=== PATIENT | female | born 1955 | race Caucasian/White ===

== ENCOUNTER → 2021-09-11 | Outpatient (CLI) | payer OTHER ==
[2021-09-11 13:47] LABS: BASOPHILS ABSOLUTE AUTO 0.07 K/mm3 (0.00-0.23); BASOPHILS PERCENT AUTO 1 % (0-2); EOSINOPHILS ABSOLUTE AUTO 0.34 K/mm3 (0.00-0.68); EOSINOPHILS PERCENT AUTO 7 % (0-6); Hematocrit 37.8 % (33.0-51.0); Hemoglobin 12.2 g/dL (11.5-16.0); IMMATURE GRAN ABSOLUTE AUTO 0.01 K/mm3 (0.00-0.10); IMMATURE GRAN PERCENT AUTO 0 % (0-1); LYMPHOCYTES ABSOLUTE AUTO 1.25 K/mm3 (0.84-5.20); LYMPHOCYTES PERCENT AUTO 24 % (21-46); MONOCYTES ABSOLUTE AUTO 0.55 K/mm3 (0.16-1.47); MONOCYTES PERCENT AUTO 11 % (4-13); Mean Corpuscular HGB 29.7 pg (26.0-34.0); Mean Corpuscular HGB Conc 32.3 g/dL (31.5-36.5); Mean Corpuscular Volume 92 fL (80-100); Mean Platelet Volume 9.1 fL (9.1-12.4); NEUTROPHILS PERCENT AUTO 57 % (41-73); Platelet Count 396 K/mm3 (150-400); RDW Coefficient Variation 12.1 % (11.7-14.2); RDW Standard Deviation 40.8 fL (35.1-46.3); Red Blood Cell Count 4.11 M/mm3 (3.80-5.20); White Blood Cell Count 5.12 K/mm3 (4.00-11.30)
[2021-09-11 15:52] LABS: Albumin, Blood 3.8 g/dL (3.4-5.0); Anion Gap 6 mmol/L (6-16); Blood Urea Nitrogen 14 mg/dL (8-24); CO2, Blood 28 mmol/L (21-32); Calcium, Blood 9.4 mg/dL (8.5-10.1); Chloride, Blood 100 mmol/L (98-108); Glucose, Blood 100 mg/dL (70-99); Potassium, Blood 4.2 mmol/L (3.5-5.5); Sodium, Blood 134 mmol/L (136-145)
[2021-09-11 16:06] LABS: Alanine Aminotransfer (ALT/SGP 33 U/L (12-78); Albumin/Globulin Ratio 1.1 (0.8-1.8); Alk Phos 97 U/L (50-136); Aspartate Aminotrans (AST/SGOT 17 U/L (12-37); Bilirubin, Total 0.4 mg/dL (0.1-1.0); Bun/Creatinine Ratio 21.2 (12.0-20.0); Cholesterol 168 mg/dL (50-200); Creatinine, Blood 0.66 mg/dL (0.40-1.00); Globulin, Blood 3.6 g/dL (2.2-4.0); Glomerular Filtration Rate >60 (60-); HDL Cholesterol 83 mg/dL (>39); LDL/HDL RATIO 0.9; Low Density Lipoprotein Chol 74 mg/dL (0-110); Total Protein, Blood 7.4 g/dL (6.4-8.2); Triglycerides 54 mg/dL (30-160); Very Low Density Lipoprot Chol 10 mg/dL (6-32)
== END ==
LOC: LAB SHORT 13:03 → LAB 13:03
PROVIDERS: Family Medicine
DX: I10 Essential (primary) hypertension (principal); E78.5 Hyperlipidemia, unspecified
CPT/HCPCS: 36415; 80053; 80061; 85025

== ENCOUNTER 2023-04-13 14:47 | Inpatient (IN) | payer OTHER ==
[~2023-04-13] VITALS: Ht 167.6 cm; Wt 101.6 kg
[2023-04-13] MEDS ORDERED: ROSUVASTATIN CAL5 MG PO (15:03)
[2023-04-13] MEDS ORDERED: LISI20 PO (15:03)
[2023-04-13] MEDS ORDERED: MAGNESIUM CITRATE (15:03)
[2023-04-13 15:35] LABS: BASOPHILS ABSOLUTE AUTO 0.05 K/mm3 (0.00-0.23); BASOPHILS PERCENT AUTO 0 % (0-2); EOSINOPHILS ABSOLUTE AUTO 0.07 K/mm3 (0.00-0.68); EOSINOPHILS PERCENT AUTO 0 % (0-6); Hematocrit 39.5 % (33.0-51.0); IMMATURE GRAN ABSOLUTE AUTO 0.11 K/mm3 (0.00-0.10); IMMATURE GRAN PERCENT AUTO 1 % (0-1); LYMPHOCYTES ABSOLUTE AUTO 0.38 K/mm3 (0.84-5.20); LYMPHOCYTES PERCENT AUTO 2 % (21-46); MONOCYTES ABSOLUTE AUTO 1.36 K/mm3 (0.16-1.47); MONOCYTES PERCENT AUTO 7 % (4-13); Mean Corpuscular HGB 31.4 pg (26.0-34.0); Mean Corpuscular HGB Conc 35.4 g/dL (31.5-36.5); Mean Corpuscular Volume 89 fL (80-100); Mean Platelet Volume 10.7 fL (9.1-12.4); NEUTROPHILS ABSOLUTE AUTO 18.01 K/mm3 (1.96-9.15); NEUTROPHILS PERCENT AUTO 90 % (41-73); Platelet Count 299 K/mm3 (150-400); RDW Coefficient Variation 12.3 % (11.7-14.2); RDW Standard Deviation 40.1 fL (35.1-46.3); Red Blood Cell Count 4.46 M/mm3 (3.80-5.20); White Blood Cell Count 19.98 K/mm3 (4.00-11.30)
[2023-04-13 15:53] LABS: Albumin, Blood 2.8 g/dL (3.4-5.0); Albumin/Globulin Ratio 0.5 (0.8-1.8); Bilirubin, Total 0.8 mg/dL (0.1-1.0); Bun/Creatinine Ratio 28.1 (12.0-20.0); Calcium, Blood 9.3 mg/dL (8.5-10.1); Creatinine, Blood 1.71 mg/dL (0.40-1.00); Globulin, Blood 5.1 g/dL (2.2-4.0); Total Protein, Blood 7.9 g/dL (6.4-8.2)
[2023-04-13 15:54] LABS: Potassium, Blood 4.8 mmol/L (3.5-5.5)
[2023-04-13 21:07] LABS: Source, Urine Clean Catch
[2023-04-13 21:13] LABS: Bilirubin, Urine Neg (Neg); Blood, Urine 3+ (Neg); Glucose Qualitative, Urine Neg (Neg); Ketones, Urine Neg (Neg); Leukocyte Esterase, Urine 2+ (Neg); Nitrite, Urine Neg (Neg); Protein, Urine 3+ (Neg); Urobilinogen, Urine NORM (Normal)
[2023-04-13 21:25] LABS: Appearance, Urine Hazy (Clear); Color, Urine Yellow (P-Yellow)
[2023-04-13 21:26] LABS: Bacteria Many /hpf; Red Blood Cells, Urine 0-2 /hpf (0-2); Squamous Epithelial Cells Few /hpf (Few)
[2023-04-13 23:44] LABS: Adenovirus F 40/41 Not Detected (NOT DETECT); Astrovirus Not Detected (NOT DETECT); Campylobacter Sp Not Detected (NOT DETECT); Cryptosporidium Not Detected (NOT DETECT); Cyclospora Cayetanensis Not Detected (NOT DETECT); E. Coli O157 Not Detected (NOT DETECT); Entamoeba Histolytica Not Detected (NOT DETECT); Enteroaggregative E. coli-EAEC Not Detected (NOT DETECT); Enteropathogenic E. coli-EPEC Not Detected (NOT DETECT); Enterotoxigenic E. coli-ETEC Not Detected (NOT DETECT); Giardia Lamblia Not Detected (NOT DETECT); Norovirus GI/GII Not Detected (NOT DETECT); Plesiomonas Shigelloides Not Detected (NOT DETECT); Rotavirus A Not Detected (NOT DETECT); Salmonella Sp Not Detected (NOT DETECT); Sapovirus Not Detected (NOT DETECT); Shiga Toxin-prod E. coli-STEC Not Detected (NOT DETECT); Shigella/Enteroin E. coli-EIEC Not Detected (NOT DETECT); Vibrio Cholerae Not Detected (NOT DETECT); Vibrio Sp Not Detected (NOT DETECT); Yersinia Enterocolitica Not Detected (NOT DETECT)
[2023-04-14 00:07] VITALS: BP 139/63
[2023-04-14 02:51] LABS: SARS-Cov-2 (COVID-19) PCR, MMC NEGATIVE (NEGATIVE)
[2023-04-14 04:00] VITALS: BP 115/59
[2023-04-14 04:23] LABS: Hematocrit 35.4 % (33.0-51.0); Hemoglobin 12.5 g/dL (11.5-16.0); Mean Corpuscular HGB 31.3 pg (26.0-34.0); Mean Corpuscular HGB Conc 35.3 g/dL (31.5-36.5); Mean Corpuscular Volume 89 fL (80-100); Mean Platelet Volume 9.9 fL (9.1-12.4); Platelet Count 266 K/mm3 (150-400); RDW Coefficient Variation 12.3 % (11.7-14.2); RDW Standard Deviation 40.3 fL (35.1-46.3); Red Blood Cell Count 3.99 M/mm3 (3.80-5.20); White Blood Cell Count 15.09 K/mm3 (4.00-11.30)
[2023-04-14 04:51] LABS: Albumin, Blood 2.3 g/dL (3.4-5.0); Albumin/Globulin Ratio 0.6 (0.8-1.8); Bilirubin, Total 0.4 mg/dL (0.1-1.0); Bun/Creatinine Ratio 43.1 (12.0-20.0); Calcium, Blood 8.5 mg/dL (8.5-10.1); Creatinine, Blood 1.09 mg/dL (0.40-1.00); Globulin, Blood 4.1 g/dL (2.2-4.0); Magnesium, Blood 2.1 mg/dL (1.6-2.4); Potassium, Blood 3.5 mmol/L (3.5-5.5); Total Protein, Blood 6.4 g/dL (6.4-8.2)
[2023-04-14 04:52] LABS: BAND PERCENT MAN 16 % (0-8); BASOPHILS PERCENT MAN 0 % (0-2); EOSINOPHILS PERCENT MAN 0 % (0-6); LYMPHOCYTES PERCENT MAN 4 % (21-46); MONOCYTES ABSOLUTE MAN 0.75 K/mm3 (0.16-1.47); MONOCYTES PERCENT MAN 5 % (4-13); NEUTROPHILS ABSOLUTE MAN 13.73 K/mm3 (1.96-9.15); SEG NEUTROPHILS PERCENT MAN 75 % (41-73); TOTAL CELLS COUNTED 100
--- NOTE | 2023-04-14 06:07 | NUR ---
SHIFT SHELDON PT ARRIVED FROM ER TO PCU ROOM 11 EARLIER IN THE SHIFT. SHE HAS BEEN ALERT AND ORIENTED X3, W/SOME CONFUSION AT TIMES. HER RIGHT LOWER EXTREMITY IS NOTED TO BE RED AND BLISTERING. PERIMETERS MARKED PER MD ORDER. PEDAL PULSES ARE PRESENT BILATERALLY. SHE HAS SKIN TEARS ON BOTH ARMS. SHE IS INCONTINENT OF BOWEL AND BLADDER, ATTENDS IN PLACE. SHE HAS DENIED ANY PAIN AND HAS HAD NO ACUTE EVENTS SINCE HER ADMISSION TO THIS UNIT.
[2023-04-14 07:07] VITALS: BP 109/61
--- NOTE | 2023-04-14 07:41 | NUR ---
NURSING PCU DAYSHIFT: Assumed care of pt at approx 0700. A/O, very pleasant, cooperative w/care. C/O mild pain to R heel r/t blistering/cellulitis. RLE red/warm, weeping, blisters, redness extending from foot to just below knee, area marked. Redness/excoriation in folds, scattered bruising, skin tears to UE's, skin fragile. Tele in place, NSR, no c/o CP/pressure, SBP 109 at initial assessment, non pitting edema to RLE. L/S cta t/o, denies dyspnea, no noted cough, O2 sat upper 90's on RA. Abd SNT, BT+, voids w/o difficulty per pt though attends in place. PIV x1, NS infusing at 100cc/hr as per d/o w/abx as scheduled. No s/s of acute distress this a.m. PMD currently at bedside for assessment. Bedbath and orthostatics being completed at this time. Bed/safety alarms in use for fall prevention. Pt denies any current needs/questions regarding plan of care, call light in reach, cont to monitor for changes.
[2023-04-14 12:41] VITALS: BP 153/73
[2023-04-14 15:47] VITALS: BP 152/82
--- NOTE | 2023-04-14 18:16 | NUR ---
NURSING PCU DAYSHIFT SUMMARY: Pt has continued to do well t/o the shift. Spent majority of day OOB in chair. Worked w/PT/OT as ordered. Current recommendation to DC to SNF though patient has concerns, education provided regarding SNF/rehab options and purpose of SNF. Family at bedside intermittently t/o day, update provided to son via telephone, plan of care discussed and questions answered. RLE continues to drain clear fluid, swelling and redness has shown some improvement. IVF continue at 100cc/hr w/abx as scheduled. Seen by PMD, new d/o received. Pt xfer BTB w/staff assist. Resting comfortably w/call light in reach. Denies any current questions/needs, cont to monitor until rpt is given to NOC RN.
[2023-04-15 00:34] VITALS: BP 157/78
[2023-04-15 04:00] VITALS: BP 144/61
[2023-04-15 04:07] LABS: BASOPHILS ABSOLUTE AUTO 0.02 K/mm3 (0.00-0.23); BASOPHILS PERCENT AUTO 0 % (0-2); EOSINOPHILS ABSOLUTE AUTO 0.04 K/mm3 (0.00-0.68); EOSINOPHILS PERCENT AUTO 0 % (0-6); Hematocrit 31.9 % (33.0-51.0); Hemoglobin 11.1 g/dL (11.5-16.0); IMMATURE GRAN ABSOLUTE AUTO 0.09 K/mm3 (0.00-0.10); IMMATURE GRAN PERCENT AUTO 1 % (0-1); LYMPHOCYTES ABSOLUTE AUTO 0.28 K/mm3 (0.84-5.20); LYMPHOCYTES PERCENT AUTO 3 % (21-46); MONOCYTES ABSOLUTE AUTO 0.91 K/mm3 (0.16-1.47); MONOCYTES PERCENT AUTO 8 % (4-13); Mean Corpuscular HGB 31.2 pg (26.0-34.0); Mean Corpuscular HGB Conc 34.8 g/dL (31.5-36.5); Mean Corpuscular Volume 90 fL (80-100); NEUTROPHILS ABSOLUTE AUTO 9.89 K/mm3 (1.96-9.15); NEUTROPHILS PERCENT AUTO 88 % (41-73); Platelet Count 254 K/mm3 (150-400); RDW Coefficient Variation 12.4 % (11.7-14.2); RDW Standard Deviation 41.1 fL (35.1-46.3); Red Blood Cell Count 3.56 M/mm3 (3.80-5.20); White Blood Cell Count 11.23 K/mm3 (4.00-11.30)
--- NOTE | 2023-04-15 05:28 | NUR ---
SHIFT SUMMARY NO ACUTE EVENTS T/O NIGHT. PT A/O X 4. FOLLOWS COMMANDS. VSS. ON RA. 1-2 PERSON ASSIST TO GET OOB. USES CALL LIGHT. HAS URGE INCONT. RLE RED, HOT, AND DRAINING. ONE SPOT OPEN ON INSIDE OF ANKLE. MEDICATED FOR PAIN ONCE. SEE EMAR. NS AT 100ML/HR. WILL REPORT OFF TO ONCOMING RN.
[2023-04-15 05:54] LABS: Albumin, Blood 2.3 g/dL (3.4-5.0); Anion Gap 5 mmol/L (6-16); Blood Urea Nitrogen 21 mg/dL (8-24); Bun/Creatinine Ratio 31.3 (12.0-20.0); CO2, Blood 23 mmol/L (21-32); Calcium, Blood 8.4 mg/dL (8.5-10.1); Chloride, Blood 106 mmol/L (98-108); Creatinine, Blood 0.67 mg/dL (0.40-1.00); Glomerular Filtration Rate 96 (60-); Glucose, Blood 107 mg/dL (70-99); Phosphorus, Blood 2.1 mg/dL (2.5-4.9); Potassium, Blood 3.3 mmol/L (3.5-5.5); Sodium, Blood 134 mmol/L (136-145)
[2023-04-15 07:30] VITALS: BP 147/73
[2023-04-15 15:59] VITALS: BP 145/67
--- NOTE | 2023-04-15 17:15 | NUR ---
NURSING PCU DAYSHIFT SUMMARY: No significant changes noted t/o the shift. Worked with PT/OT and was OOB in chair until early afternoon. RLE has had less drainage than previous day and appears more edematous. C/O cramping in LE's, requested tylenol, pain improved per pt. CTA of RLE completed, results reviewed. Plan for possible discharge 04/16 to SNF which pt and sister are agreeable to at this time. Pt denies any current questions/needs, resting comfortably in bed. Cont to monitor until rpt is give to NOC RN.
[2023-04-15 21:47] VITALS: BP 148/67
--- NOTE | 2023-04-15 21:58 | NUR ---
CARE WAS ASSUMED OF PT AT 1900, PT WAS ALERT AND ORIENTED, ON ROOM AIR WITHOUT DISTRESS. NO MAJOR CHANGES DURING SHIFT. REPORT TO KOFI KELLOGG WHO WILL ASSUME CARE IN ROOM 301 ON MEDICAL FLOOR.
[2023-04-15 22:15] VITALS: BP 138/67
[2023-04-16 04:19] VITALS: BP 149/59
--- NOTE | 2023-04-16 05:27 | NUR ---
SHIFT SUMMARY REPORT FROM PCU NURSE ROSY RN- 2199 PT TRANSFERRED TO ROOM 301- 2ND NURSE SKIN CHECK DONE BY SWETA Santos RN- PT DENIES PAIN IN RIGHT LEFT, RIGHT LEG= CELLULITIS - SKIN MARKING IN PLACE, PT ORIENT TO ROOM, CALL LIGHT, REPORT THAT PT IS CONFUSED AT TIMES, BED ALARM IN PLACE- PT USED CALL LIGHT COUPLE TIMES IN SHIFT TO USE BSC, PT TOLERATED WELL
[2023-04-16 07:05] VITALS: BP 170/65
--- NOTE | 2023-04-16 16:09 | NUR ---
SHIFT SUMMARY PT IS ALERT AND ORIENTED X4. SHE HAS BEEN UP TO THE CHAIR FOR MOST OF THE DAY. REDNESS ON RLE SEEMS TO BE WORSE THAT THE BEGINING OF THE SHIFT. LIGHT COMPRESSION APPLIED PER DR. MOHAN REQUEST. 1 PERSON ASSIST. PAIN HAS BEEN MANAGED PER EMAR AND ICE PACKS. NO ACUTE CHANGES THIS SHIFT. BED IS IN THE LOWEST POSITION WITH CALL LIGHT IN REACH. PT IS ABLE TO MAKE NEEDS KNOWN.
[2023-04-16 19:27] VITALS: BP 162/84
[2023-04-17 03:25] VITALS: BP 148/63
[2023-04-17 05:03] LABS: BASOPHILS ABSOLUTE AUTO 0.03 K/mm3 (0.00-0.23); BASOPHILS PERCENT AUTO 0 % (0-2); EOSINOPHILS ABSOLUTE AUTO 0.07 K/mm3 (0.00-0.68); EOSINOPHILS PERCENT AUTO 1 % (0-6); Hematocrit 29.7 % (33.0-51.0); Hemoglobin 10.3 g/dL (11.5-16.0); IMMATURE GRAN ABSOLUTE AUTO 0.27 K/mm3 (0.00-0.10); IMMATURE GRAN PERCENT AUTO 2 % (0-1); LYMPHOCYTES ABSOLUTE AUTO 0.58 K/mm3 (0.84-5.20); LYMPHOCYTES PERCENT AUTO 5 % (21-46); MONOCYTES ABSOLUTE AUTO 1.18 K/mm3 (0.16-1.47); MONOCYTES PERCENT AUTO 10 % (4-13); Mean Corpuscular HGB 30.9 pg (26.0-34.0); Mean Corpuscular HGB Conc 34.7 g/dL (31.5-36.5); Mean Corpuscular Volume 89 fL (80-100); Mean Platelet Volume 10.3 fL (9.1-12.4); NEUTROPHILS ABSOLUTE AUTO 10.27 K/mm3 (1.96-9.15); NEUTROPHILS PERCENT AUTO 83 % (41-73); Platelet Count 333 K/mm3 (150-400); RDW Coefficient Variation 12.9 % (11.7-14.2); Red Blood Cell Count 3.33 M/mm3 (3.80-5.20)
--- NOTE | 2023-04-17 05:09 | NUR ---
SHIFT SUMMARY PT SITTING UP IN CHAIR DURING BEDSIDE ROUNDS, CALL LIGHT WITHIN REACH - PT TOOK HS MEDS WITHOUT PROBLEMS- CALL TO ANIBAL ERNANDEZ REQUESTING PROBIOTICS - GAVE PROBIOTIC NOW SCHEDULED BID TO START TOMORROW- PT AMBULATED TO BR WITH FWW - CREAM APPLIED TO BUTTOCKS- APPLIED NYSTATIN POWDER TO FOLDS- PT TOLERATED WELL- PT SLEPT T/O NIGHT, PT USED CALL LIGHT APPROPRIATELY TO GET UP TO BSC, PT RIGHT LEG CELLULITS HAS INCREASED WATER BLISTERS AROUND ANKLE AND UPPER SIDE OF CALF, LEG IS WEPPING- ELEVATED PT'S LEGS WITH MULTIPLE PILLOWS TO DECREASE THE SWELLING, PT TOLERATED WELL BED LOW POSITION, CALL LIGHT WITHIN REACH
[2023-04-17 05:38] LABS: Magnesium, Blood 1.7 mg/dL (1.6-2.4)
[2023-04-17 05:45] LABS: Anion Gap 7 mmol/L (6-16); Blood Urea Nitrogen 6 mg/dL (8-24); Bun/Creatinine Ratio 11.2 (12.0-20.0); CO2, Blood 25 mmol/L (21-32); Calcium, Blood 8.1 mg/dL (8.5-10.1); Chloride, Blood 102 mmol/L (98-108); Creatinine, Blood 0.54 mg/dL (0.40-1.00); Glomerular Filtration Rate 101 (60-); Glucose, Blood 122 mg/dL (70-99); Phosphorus, Blood 2.7 mg/dL (2.5-4.9); Potassium, Blood 3.2 mmol/L (3.5-5.5); Sodium, Blood 134 mmol/L (136-145)
[2023-04-17 07:37] VITALS: BP 143/58
[2023-04-17 15:36] VITALS: BP 138/59
--- NOTE | 2023-04-17 17:20 | NUR ---
SHIFT SUMMARY PT IS ALERT AND ORIENTED X4. RLE REDNESS APPEARS TO BE WORSE THAN YESTERDAY. NEW BLISTERS HAVE FORMED AND WEEPING. PAIN TREATED PER EMAR. PT IS 1-2 PERSON WITH FWW AND GAIT BELT. BED IS IN THE LOWEST POSITION WITH CALL LIGHT IN REACH. ABLE TO MAKE NEEDS KNOWN.
[2023-04-17 21:02] VITALS: BP 137/49
[2023-04-18 04:25] VITALS: BP 149/77
[2023-04-18 04:49] LABS: Hemoglobin 10.3 g/dL (11.5-16.0); Mean Corpuscular HGB 31.1 pg (26.0-34.0); Mean Corpuscular HGB Conc 34.3 g/dL (31.5-36.5); Mean Corpuscular Volume 91 fL (80-100); Platelet Count 433 K/mm3 (150-400); RDW Coefficient Variation 13.2 % (11.7-14.2); RDW Standard Deviation 44.1 fL (35.1-46.3); Red Blood Cell Count 3.31 M/mm3 (3.80-5.20)
[2023-04-18 05:09] LABS: Anion Gap 6 mmol/L (6-16); Blood Urea Nitrogen 7 mg/dL (8-24); Bun/Creatinine Ratio 12.3 (12.0-20.0); CO2, Blood 24 mmol/L (21-32); Calcium, Blood 8.2 mg/dL (8.5-10.1); Chloride, Blood 104 mmol/L (98-108); Creatinine, Blood 0.57 mg/dL (0.40-1.00); Glomerular Filtration Rate 100 (60-); Glucose, Blood 131 mg/dL (70-99); Magnesium, Blood 1.9 mg/dL (1.6-2.4); Phosphorus, Blood 2.8 mg/dL (2.5-4.9); Potassium, Blood 3.8 mmol/L (3.5-5.5); Sodium, Blood 134 mmol/L (136-145)
[2023-04-18 05:21] LABS: BASOPHILS ABSOLUTE MAN 0.11 K/mm3 (0.00-0.23); BASOPHILS PERCENT MAN 1 % (0-2); EOSINOPHILS PERCENT MAN 0 % (0-6); LYMPHOCYTES ABSOLUTE MAN 0.46 K/mm3 (0.84-5.20); LYMPHOCYTES PERCENT MAN 4 % (21-46); METAMYELOCYTE ABSOLUTE MAN 0.46 K/mm3 (0.00-0.00); METAMYELOCYTE PERCENT MAN 4 % (0-0); MONOCYTES PERCENT MAN 7 % (4-13); MYELOCYTE ABSOLUTE MAN 0.34 K/mm3 (0.00-0.00); MYELOCYTE PERCENT MAN 3 % (0-0); NEUTROPHILS ABSOLUTE MAN 9.31 K/mm3 (1.96-9.15); SEG NEUTROPHILS PERCENT MAN 81 % (41-73); TOTAL CELLS COUNTED 100
--- NOTE | 2023-04-18 06:28 | NUR ---
SHIFT SUMMARY PT SITTING UP IN RECLINER DURING BEDSIDE REPORT, RIGHT CELLULITIS LEG ELEVATED WITH 2 PILLOWS, INCREASED REDNESS AND ADDITONAL BLISTERS COMPARED TO 04/16 HS ASSESSMENT, ZOSYN OVERDUE FROM 1800- FIRST DOSE GIVEN LATE- WILL ADJUST TIMES AND GET ON SCHEDULE- PT REQUESTED TRAMADOL WITH HS MEDS AND REQUESTED TO STAY UP IN RECLINER FOR LONGER, 2350 PT AMBULATED TO BATHROOM AND RETURNED TO BED- PT TOLERATED WELL-
[2023-04-18 07:21] VITALS: BP 138/60
--- NOTE | 2023-04-18 16:41 | NUR ---
SHIFT SUMMARY MS MCGUIRE IS OX4. RLE ELEVATED WHEN IN BED AND RECLINER. WALKED IN THE HALLS TWICE WITH GAIT BELT AND WALKER. RLE RED WITH WEEPING BLISTERS, WRAPPED WITH DRY DRESSING X 2 (SOAKED THROUGH). REDNESS HAS NOT EXTENDED ABOVE MARKED PEN LINE. POWERGLIDE PLACED TODAY. MS MCGUIRE HAS SOME DISCOMFORT TO HER RLE, HELPED WITH REST/ELEVATION. GOOD FAMILY SUPPORT FROM SISTERS. BED LOW, CALL LIGHT IN REACH.
[2023-04-18 17:00] VITALS: BP 144/66
--- NOTE | 2023-04-19 00:43 | NUR ---
PT IS A&OX4 1PASSIST FWW WGB. USE BSC. KVO IV @20ML/HR MARIANA. PT HAS SCATTERED BRUISING TO EXTREMITIES. RLE CELLUITSIS RED EDEMANEOUS WEEPING OOZING YELLOW FLUID WITH BLISTERS. REPORTS PAIN 3/10. LUNGS ARE DIMINISHED AT BASES SOB W EXCERSION. CYNTHIA RASH AREA IN ABDOMENAL FOLD. MULTISTAGE BREAKDOWN IN GLUTEAL FOLD W BRUISING BARRIER CREAM APPLIED. PT DENIES FURTHER DISCOMFORT. CALL BOYD WITHIN REACH BED LOWERED. WILL CONITNUE TO MONITOR.
[2023-04-19 03:03] LABS: Hematocrit 31.2 % (33.0-51.0); Hemoglobin 10.7 g/dL (11.5-16.0); Mean Corpuscular HGB 31.4 pg (26.0-34.0); Mean Corpuscular HGB Conc 34.3 g/dL (31.5-36.5); Mean Corpuscular Volume 92 fL (80-100); Mean Platelet Volume 9.3 fL (9.1-12.4); Platelet Count 521 K/mm3 (150-400); RDW Coefficient Variation 13.6 % (11.7-14.2); Red Blood Cell Count 3.41 M/mm3 (3.80-5.20); White Blood Cell Count 9.53 K/mm3 (4.00-11.30)
[2023-04-19 03:20] LABS: Anion Gap 7 mmol/L (6-16); Blood Urea Nitrogen 9 mg/dL (8-24); Bun/Creatinine Ratio 15.1 (12.0-20.0); CO2, Blood 24 mmol/L (21-32); Calcium, Blood 8.6 mg/dL (8.5-10.1); Chloride, Blood 107 mmol/L (98-108); Glomerular Filtration Rate 99 (60-); Glucose, Blood 143 mg/dL (70-99); Phosphorus, Blood 3.1 mg/dL (2.5-4.9); Potassium, Blood 4.2 mmol/L (3.5-5.5); Sodium, Blood 138 mmol/L (136-145)
[2023-04-19 03:24] LABS: Vancomycin, Trough 18.4 ug/mL (5.0-10.0)
[2023-04-19 04:05] VITALS: BP 177/68
--- NOTE | 2023-04-19 05:32 | NUR ---
SHIFT SUMMARY PATIENT MEDICATED FOR PAIN X1. PATIENT DENIES NAUSEA AND SHORTNESS OF BREATH. PATIENT IS A SBA WITH A FWW TO THE BSC. PATIENT SLEPT ON AND OFF THROUGHOUT THE NIGHT. DRESSING TO RLE CHANGED. RLE WEEPING FREQUENTLY. PATIENT IS A&O X4, PATIENT IS PLEASANT AND COOPERATIVE WITH CARE.
[2023-04-19 06:06] LABS: BAND PERCENT MAN 4 % (0-8); BASOPHILS ABSOLUTE MAN 0.09 K/mm3 (0.00-0.23); BASOPHILS PERCENT MAN 1 % (0-2); EOSINOPHILS ABSOLUTE MAN 0.09 K/mm3 (0.00-0.68); EOSINOPHILS PERCENT MAN 1 % (0-6); LYMPHOCYTES ABSOLUTE MAN 0.57 K/mm3 (0.84-5.20); LYMPHOCYTES PERCENT MAN 6 % (21-46); METAMYELOCYTE ABSOLUTE MAN 0.09 K/mm3 (0.00-0.00); METAMYELOCYTE PERCENT MAN 1 % (0-0); MONOCYTES ABSOLUTE MAN 0.76 K/mm3 (0.16-1.47); MONOCYTES PERCENT MAN 8 % (4-13); MYELOCYTE ABSOLUTE MAN 1.14 K/mm3 (0.00-0.00); MYELOCYTE PERCENT MAN 12 % (0-0); NEUTROPHILS ABSOLUTE MAN 6.76 K/mm3 (1.96-9.15); SEG NEUTROPHILS PERCENT MAN 67 % (41-73); TOTAL CELLS COUNTED 100
[2023-04-19 07:35] VITALS: BP 183/73
[2023-04-19 12:34] VITALS: BP 151/67
[2023-04-19 15:22] VITALS: BP 172/66
--- NOTE | 2023-04-19 18:26 | NUR ---
SHIFT SUMMARY MS MCGUIRE IS OX4, UP TO CHAIR TODAY WITH LEG ELEVATED, BACK IN BED NOW WITH LEG ELEVATED ON PILLOWS. RLE DISCOMFORT AFTER BLISTERS TRIMMED AND REDRESSED BY DR MOHAN TODAY. NO BLEEDING NOTICED THROUGH DRESSING, DRESSING DUE TO BE CHANGED SHORTLY. IV ABX VIA POWERGLIDE, ABLE TO GET BLOOD RETURN BUT NOT ENOUGH FOR BLOOD DRAW. BED LOW, CALL LIGHT IN REACH.
[2023-04-19 18:39] LABS: Anion Gap 6 mmol/L (6-16); Blood Urea Nitrogen 8 mg/dL (8-24); Bun/Creatinine Ratio 13.7 (12.0-20.0); CO2, Blood 25 mmol/L (21-32); Calcium, Blood 8.4 mg/dL (8.5-10.1); Chloride, Blood 104 mmol/L (98-108); Creatinine, Blood 0.58 mg/dL (0.40-1.00); Glomerular Filtration Rate 100 (60-); Glucose, Blood 131 mg/dL (70-99); Potassium, Blood 4.3 mmol/L (3.5-5.5); Sodium, Blood 135 mmol/L (136-145)
[2023-04-19 19:15] VITALS: BP 140/70
--- NOTE | 2023-04-19 19:51 | NUR ---
RN NOTE DRESSING CHANGE DONE RIGHT LEG. PREVIOUS DRESSING WAS MOIST, SLIGHT BLOODY DRAINAGE FROM HEMATOMA SITE BUT NOT MUCH. PHOTOGRAPHS PLACED IN THE CHART. PT TOLERATED DRESSING CHANGE WELL.
--- NOTE | 2023-04-20 02:00 | NUR ---
PT A&0X4 RLE ELEVATED 1PASSIST TO BSC APPLIED BARRIER CREAM. PT REPORTS MODERATE PAIN EARLIER AND RECEIVED PRN PER EMAR. PT REPORTS MILD DISCOMFORT TO RLE DRESSING C/D/I. PT LUNGS ARE DIMINISHED IN BASES AND PT IS SOB WILL EXCERSION. PT PLNS TO D/C HOME WITH FAMILY SUPPORT AND OUTPT ORAL ABX OR IV CLINIC. BED LOWERED CALL BEEL WITHIN REACH WILL CONTINUE TO MONITOR.
[2023-04-20 02:20] LABS: Hematocrit 31.5 % (33.0-51.0); Hemoglobin 10.5 g/dL (11.5-16.0); Mean Corpuscular HGB 30.8 pg (26.0-34.0); Mean Corpuscular HGB Conc 33.3 g/dL (31.5-36.5); Mean Corpuscular Volume 92 fL (80-100); Mean Platelet Volume 9.1 fL (9.1-12.4); Platelet Count 558 K/mm3 (150-400); RDW Coefficient Variation 13.6 % (11.7-14.2); RDW Standard Deviation 46.4 fL (35.1-46.3); Red Blood Cell Count 3.41 M/mm3 (3.80-5.20); White Blood Cell Count 8.72 K/mm3 (4.00-11.30)
[2023-04-20 03:05] LABS: Vancomycin, Trough 20.3 ug/mL (5.0-10.0)
[2023-04-20 04:05] VITALS: BP 174/66
[2023-04-20 04:36] LABS: BAND PERCENT MAN 5 % (0-8); BASOPHILS PERCENT MAN 0 % (0-2); EOSINOPHILS ABSOLUTE MAN 0.08 K/mm3 (0.00-0.68); EOSINOPHILS PERCENT MAN 1 % (0-6); LYMPHOCYTES ABSOLUTE MAN 1.22 K/mm3 (0.84-5.20); LYMPHOCYTES PERCENT MAN 14 % (21-46); METAMYELOCYTE ABSOLUTE MAN 0.26 K/mm3 (0.00-0.00); METAMYELOCYTE PERCENT MAN 3 % (0-0); MONOCYTES ABSOLUTE MAN 0.78 K/mm3 (0.16-1.47); MONOCYTES PERCENT MAN 9 % (4-13); MYELOCYTE ABSOLUTE MAN 0.17 K/mm3 (0.00-0.00); MYELOCYTE PERCENT MAN 2 % (0-0); NEUTROPHILS ABSOLUTE MAN 6.19 K/mm3 (1.96-9.15); SEG NEUTROPHILS PERCENT MAN 66 % (41-73); TOTAL CELLS COUNTED 100
--- NOTE | 2023-04-20 05:21 | NUR ---
SHIFT SUMMARY PATIENT MEDICATED FOR PAIN X2, PATIENT DENIES NAUSEA AND SHORTNESS OF BREATH. PATIENT IS A SBA WITH A FWW TO THE BS. PATIENT SLEPT MOST OF NIGHT. PATIENT VANCO LEVEL CAME BACK AT 20.3. 0300 DOSE NOT GIVEN PER PHARMACY. DRESSING TO RIGHT LE C/D/I. PATIENT IS A&O X4. PATIENT HAS POWERGLIDE TO MARIANA. PATIENT IS PLEASANT AND COOPERATIVE WITH CARE. PATIENT CALLS APPROPRIATELY.
[2023-04-20 07:31] VITALS: BP 185/73
[2023-04-20 08:52] VITALS: BP 166/65
[2023-04-20 15:04] VITALS: BP 189/86
[2023-04-20 16:14] VITALS: BP 169/80
--- NOTE | 2023-04-20 16:29 | NUR ---
SHIFT SUMMARY MS MCGUIRE SAID THAT SHE IS TIRED TODAY. SHE DECLINED WALKING IN THE HALLWAYS, SAID THAT SHE FELT LIKE HER KNEE WOULD BUCKLE UNDER HER. SHE STOOD AND TRANSFERED WITH WALKER/GAIT BELT AND 1 PERSON ASSISTANCE. SHE SHOWERED TODAY. LEG REDRESSED AFTER HER SHOWER WITH CALCIUM ALGINATE, SILICONE GEL, ABD PADS AND KERLEX. HTN, GIVEN IV HYDRALAZINE, SBP 160S POST IV HYDRALAZINE. SUPPORTIVE FAMILY (SISTERS) VISITED TODAY. IN BED NOW RESTING WITH LEG ELEVATED ON PILLOWS. PAIN CONTROLLED WITH PO MEDICATIONS. BED LOW, CALL LIGHT IN REACH.
[2023-04-20 18:57] VITALS: BP 168/90
--- NOTE | 2023-04-21 02:23 | NUR ---
SHIFT SUMMERY. PT WAS SITTING IN RECLINER ATN START OF SHIFT, THEN MOVED TO BED TO SLEEP. PT GIVEN TYLENOL FOR LEG PAIN AND HAS SEEMED TO BE SLEEPING WELL DURING THE NIGHT. CALL LIGHT IN REACH.
[2023-04-21 03:02] VITALS: BP 186/88
[2023-04-21 04:52] LABS: Hematocrit 33.7 % (33.0-51.0); Hemoglobin 11.1 g/dL (11.5-16.0); Mean Corpuscular HGB 30.6 pg (26.0-34.0); Mean Corpuscular HGB Conc 32.9 g/dL (31.5-36.5); Mean Corpuscular Volume 93 fL (80-100); Mean Platelet Volume 9.3 fL (9.1-12.4); Platelet Count 601 K/mm3 (150-400); RDW Coefficient Variation 13.4 % (11.7-14.2); RDW Standard Deviation 46.5 fL (35.1-46.3); Red Blood Cell Count 3.63 M/mm3 (3.80-5.20); White Blood Cell Count 9.27 K/mm3 (4.00-11.30)
[2023-04-21 05:28] LABS: Albumin, Blood 2.2 g/dL (3.4-5.0); Anion Gap 3 mmol/L (6-16); Blood Urea Nitrogen 7 mg/dL (8-24); Bun/Creatinine Ratio 10.4 (12.0-20.0); CO2, Blood 28 mmol/L (21-32); Calcium, Blood 8.9 mg/dL (8.5-10.1); Chloride, Blood 103 mmol/L (98-108); Creatinine, Blood 0.67 mg/dL (0.40-1.00); Glomerular Filtration Rate 96 (60-); Glucose, Blood 122 mg/dL (70-99); Phosphorus, Blood 4.1 mg/dL (2.5-4.9); Potassium, Blood 4.2 mmol/L (3.5-5.5); Sodium, Blood 134 mmol/L (136-145)
[2023-04-21 05:52] LABS: BAND PERCENT MAN 1 % (0-8); BASOPHILS PERCENT MAN 0 % (0-2); EOSINOPHILS ABSOLUTE MAN 0.18 K/mm3 (0.00-0.68); EOSINOPHILS PERCENT MAN 2 % (0-6); LYMPHOCYTES ABSOLUTE MAN 0.55 K/mm3 (0.84-5.20); LYMPHOCYTES PERCENT MAN 6 % (21-46); METAMYELOCYTE ABSOLUTE MAN 0.55 K/mm3 (0.00-0.00); METAMYELOCYTE PERCENT MAN 6 % (0-0); MONOCYTES ABSOLUTE MAN 0.64 K/mm3 (0.16-1.47); MONOCYTES PERCENT MAN 7 % (4-13); MYELOCYTE ABSOLUTE MAN 0.09 K/mm3 (0.00-0.00); MYELOCYTE PERCENT MAN 1 % (0-0); NEUTROPHILS ABSOLUTE MAN 7.23 K/mm3 (1.96-9.15); SEG NEUTROPHILS PERCENT MAN 77 % (41-73); TOTAL CELLS COUNTED 100
[2023-04-21 07:41] VITALS: BP 184/85
--- NOTE | 2023-04-21 11:12 | NUR ---
pt sitting up in a chair a/ox4, pleasant and coopertive with care, follows commands well, denies pain, states she's doing ok, lungs are clear t/o, resp even and unlabored, no cough noted, hrr, wounds to right leg with dressing intact, ecchymotic areas to arms, power glide to estefani infusing ns at this time, btx4, abd round soft nontender, voids via bsc, maew, ambulates with a walker, asa, call light in reach.
[2023-04-21 16:53] VITALS: BP 175/78
--- NOTE | 2023-04-21 18:03 | NUR ---
Pt has been up to a chair, about half of the day, wound care nurse changed the dressing on her leg, and put orders in, medicated once for pain, states she's doing ok now. no further changes this shift. call light in reach.
[2023-04-21 19:51] VITALS: BP 191/76
[2023-04-22 03:24] VITALS: BP 183/77
--- NOTE | 2023-04-22 04:20 | NUR ---
SHIFT SUMMARY SLOANE IS ALERT AND FULLY ORIENTED AT START OF SHIFT. SHE IS COOPERATIVE OF CARE AND PLEASANT. HER RIGHT LEG DRESSING WAS INTACT AND DRY. SHE COMPLAINS OF MODERATE PAIN IN THE LEG, MEDICATED PER EMAR. NO ACUTE EVENTS THIS SHIFT, PT SLEPT T/O THE SHIFT. PT CURRENTLY RESTING IN BED WITH CALL LIGHT IN REACH.
[2023-04-22 08:18] VITALS: BP 169/73
[2023-04-22 08:21] LABS: Hematocrit 34.2 % (33.0-51.0); Hemoglobin 11.3 g/dL (11.5-16.0); Mean Corpuscular HGB 30.7 pg (26.0-34.0); Mean Corpuscular Volume 93 fL (80-100); Mean Platelet Volume 9.2 fL (9.1-12.4); Platelet Count 561 K/mm3 (150-400); RDW Coefficient Variation 13.4 % (11.7-14.2); RDW Standard Deviation 45.9 fL (35.1-46.3); Red Blood Cell Count 3.68 M/mm3 (3.80-5.20); White Blood Cell Count 8.51 K/mm3 (4.00-11.30)
[2023-04-22 08:41] LABS: BAND PERCENT MAN 1 % (0-8); BASOPHILS PERCENT MAN 0 % (0-2); EOSINOPHILS ABSOLUTE MAN 0.08 K/mm3 (0.00-0.68); EOSINOPHILS PERCENT MAN 1 % (0-6); LYMPHOCYTES ABSOLUTE MAN 0.25 K/mm3 (0.84-5.20); LYMPHOCYTES PERCENT MAN 3 % (21-46); METAMYELOCYTE ABSOLUTE MAN 0.25 K/mm3 (0.00-0.00); METAMYELOCYTE PERCENT MAN 3 % (0-0); MONOCYTES ABSOLUTE MAN 0.76 K/mm3 (0.16-1.47); MONOCYTES PERCENT MAN 9 % (4-13); NEUTROPHILS ABSOLUTE MAN 7.14 K/mm3 (1.96-9.15); SEG NEUTROPHILS PERCENT MAN 83 % (41-73); TOTAL CELLS COUNTED 100
[2023-04-22 08:51] LABS: C-REACTIVE PROTEIN, EXT RANGE 2.26 mg/dL (0.000-0.300); Calcium, Blood 8.9 mg/dL (8.5-10.1); Creatinine, Blood 0.75 mg/dL (0.40-1.00); Potassium, Blood 4.2 mmol/L (3.5-5.5)
[2023-04-22 15:49] VITALS: BP 174/71
--- NOTE | 2023-04-22 18:17 | NUR ---
SHIFT SUMMARY: PT A/O X 4, STANDBY ASSIST WITH WALKER AND GB. PLEASANT AND COOPERATIVE. WOUND CARE COMPLETED AT 1715 TO RLE PER WOUND CARE ORDERS. SEROUS FLUID DRAINAGE NOTED TO BE SMALL. 3+ EDEMA TO RLE CONTINUES. PAIN MANAGED WITH TYLENOL AND TRAMADOL. PT HAS GOOD APPETITE. HAS NO CONCERNS AT THIS TIME. UP TO CHAIR FOR DINNER.
[2023-04-22 19:24] VITALS: BP 183/80
[2023-04-23 02:35] VITALS: BP 178/73
--- NOTE | 2023-04-23 04:01 | NUR ---
SHIFT SUMMARY SLOANE WAS ALERT AND ORIENTED AT START OF SHIFT. SHE IS PLEASANT AND COOPERATIVE. PT HAS NO ACUTE EVENTS OR CHANGES IN CONDITION THIS SHIFT. SHE CONTINUES TO HAVE ELEVATED BP, WILL CONTINUE TO MONITOR AND MEDICATED INDICATED. PT HAS NO SIGNIFICANT COMPLAINTS THIS SHIFT. SHE IS CURRENTLY RESTING IN BED WITH CALL LIGHT IN REACH.
[2023-04-23 05:04] LABS: Hematocrit 33.7 % (33.0-51.0); Hemoglobin 10.8 g/dL (11.5-16.0); Mean Corpuscular HGB 30.4 pg (26.0-34.0); Mean Corpuscular Volume 95 fL (80-100); Mean Platelet Volume 9.3 fL (9.1-12.4); Platelet Count 541 K/mm3 (150-400); RDW Coefficient Variation 13.2 % (11.7-14.2); RDW Standard Deviation 46.5 fL (35.1-46.3); Red Blood Cell Count 3.55 M/mm3 (3.80-5.20)
[2023-04-23 05:25] LABS: Albumin, Blood 2.3 g/dL (3.4-5.0); Albumin/Globulin Ratio 0.5 (0.8-1.8); Bilirubin, Total 0.4 mg/dL (0.1-1.0); Bun/Creatinine Ratio 7.9 (12.0-20.0); C-REACTIVE PROTEIN, EXT RANGE 2.23 mg/dL (0.000-0.300); Creatinine, Blood 0.76 mg/dL (0.40-1.00); Globulin, Blood 4.5 g/dL (2.2-4.0); Potassium, Blood 4.1 mmol/L (3.5-5.5); Total Protein, Blood 6.8 g/dL (6.4-8.2)
[2023-04-23 05:35] LABS: BAND PERCENT MAN 1 % (0-8); BASOPHILS ABSOLUTE MAN 0.08 K/mm3 (0.00-0.23); BASOPHILS PERCENT MAN 1 % (0-2); EOSINOPHILS ABSOLUTE MAN 0.25 K/mm3 (0.00-0.68); EOSINOPHILS PERCENT MAN 3 % (0-6); LYMPHOCYTES ABSOLUTE MAN 0.75 K/mm3 (0.84-5.20); LYMPHOCYTES PERCENT MAN 9 % (21-46); METAMYELOCYTE ABSOLUTE MAN 0.16 K/mm3 (0.00-0.00); METAMYELOCYTE PERCENT MAN 2 % (0-0); MONOCYTES ABSOLUTE MAN 0.75 K/mm3 (0.16-1.47); MONOCYTES PERCENT MAN 9 % (4-13); MYELOCYTE ABSOLUTE MAN 0.33 K/mm3 (0.00-0.00); MYELOCYTE PERCENT MAN 4 % (0-0); NEUTROPHILS ABSOLUTE MAN 6.04 K/mm3 (1.96-9.15); SEG NEUTROPHILS PERCENT MAN 71 % (41-73); TOTAL CELLS COUNTED 100
[2023-04-23 07:34] VITALS: BP 159/76
[2023-04-23 14:43] VITALS: BP 178/76
--- NOTE | 2023-04-23 14:49 | NUR ---
WOUND CARE RLE WOUND DRESSING CHANGED. DISTAL MEDIAL WOUND DRESSING CHANGED TO CALCIUM ALGINATE D/T MACERATION. CELLULTITIS APPEARS IMPROVED AND WITHIN MARKERS. OUTPATIENT WOUND CLINIC REFERRAL PLACED. PT AND FAMILY EDUCATED ON ELEVATION DRESSING CHANGES AND NUTRITION FOR WOUND HEALING. PT TOLERATED WELL
--- NOTE | 2023-04-23 17:55 | NUR ---
SHIFT SUMMARY PT AOX4, SBA WITH THE FWW TO THE BATHROOM. WOUND DRESSING DONE TODAY BY WOUND CARE NURSE. MEDICATED PER THE EMAR FOR PAIN. PT'S FAMILY AT THE BS TODAY, SPOKE WITH THE PROVIDER WHILE IN THE ROOM. PT CALLS WELL AND MAKES HER NEEDS KNOWN. CALL LIGHT WITHIN REACH, BED IN THE LOWEST POSITION. WILL REPORT TO ONCOMING NURSE.
[2023-04-23 21:30] VITALS: BP 164/72
[2023-04-24 02:29] VITALS: BP 163/82
--- NOTE | 2023-04-24 04:05 | NUR ---
SHIFT SUMMARY SLOANE WAS ALERT AND FULLY ORIENTED THIS SHIFT AND COOPERATIVE. SHE HAD NO ACUTE EVENTS TONIGHT AND NO COMPLAINTS. SHE RESTED UNEVENTFULLY T/O THE SHIFT. CURRENTLY PT IS LAYING IN BED WITH THE CALL LIGHT IN REACH.
[2023-04-24 05:06] LABS: BASOPHILS ABSOLUTE AUTO 0.09 K/mm3 (0.00-0.23); BASOPHILS PERCENT AUTO 1 % (0-2); EOSINOPHILS ABSOLUTE AUTO 0.26 K/mm3 (0.00-0.68); EOSINOPHILS PERCENT AUTO 3 % (0-6); Hematocrit 32.7 % (33.0-51.0); Hemoglobin 10.9 g/dL (11.5-16.0); IMMATURE GRAN ABSOLUTE AUTO 0.33 K/mm3 (0.00-0.10); IMMATURE GRAN PERCENT AUTO 4 % (0-1); LYMPHOCYTES ABSOLUTE AUTO 0.82 K/mm3 (0.84-5.20); LYMPHOCYTES PERCENT AUTO 9 % (21-46); MONOCYTES ABSOLUTE AUTO 0.79 K/mm3 (0.16-1.47); MONOCYTES PERCENT AUTO 9 % (4-13); Mean Corpuscular HGB Conc 33.3 g/dL (31.5-36.5); Mean Corpuscular Volume 93 fL (80-100); NEUTROPHILS ABSOLUTE AUTO 6.62 K/mm3 (1.96-9.15); NEUTROPHILS PERCENT AUTO 74 % (41-73); Platelet Count 523 K/mm3 (150-400); RDW Coefficient Variation 13.2 % (11.7-14.2); Red Blood Cell Count 3.52 M/mm3 (3.80-5.20); White Blood Cell Count 8.91 K/mm3 (4.00-11.30)
[2023-04-24 05:45] LABS: Albumin, Blood 2.4 g/dL (3.4-5.0); Albumin/Globulin Ratio 0.5 (0.8-1.8); Bilirubin, Total 0.5 mg/dL (0.1-1.0); Bun/Creatinine Ratio 10.4 (12.0-20.0); C-REACTIVE PROTEIN, EXT RANGE 1.9 mg/dL (0.000-0.300); Calcium, Blood 8.8 mg/dL (8.5-10.1); Creatinine, Blood 0.77 mg/dL (0.40-1.00); Globulin, Blood 4.4 g/dL (2.2-4.0); Potassium, Blood 4.1 mmol/L (3.5-5.5); Total Protein, Blood 6.8 g/dL (6.4-8.2)
[2023-04-24 07:27] VITALS: BP 149/66
[2023-04-24 15:18] VITALS: BP 162/82
[2023-04-24 19:08] VITALS: BP 140/64
--- NOTE | 2023-04-24 19:17 | NUR ---
SHIFT SUMMARY MS MCGUIRE AMBULATED IN THE HALLS TODAY WITH FWW AND STAND BY ASSISTANCE. KEEPING RLE ELEVATED IN RECLINER AND IN BED. RLE WOUND CLEANSED AND REDRESSED, SEEN BY DR WILLS AND PHOTOGRAPHS PLACED IN THE CHART. SWELLING HAS DECREASED AND REDNESS LOOKS LESS INTENSE THAN A FEW DAYS AGO. PAIN CONTROLLED WITH TORALDOL AND TYLENOL. GOOD APPETITE. BED LOW, CALL LIGHT IN REACH.
[2023-04-24 20:46] LABS: Vancomycin, Trough 19.2 ug/mL (5.0-10.0)
[2023-04-25 04:15] VITALS: BP 156/81
[2023-04-25 04:57] LABS: BASOPHILS ABSOLUTE AUTO 0.08 K/mm3 (0.00-0.23); BASOPHILS PERCENT AUTO 1 % (0-2); EOSINOPHILS ABSOLUTE AUTO 0.33 K/mm3 (0.00-0.68); EOSINOPHILS PERCENT AUTO 4 % (0-6); Hemoglobin 10.8 g/dL (11.5-16.0); IMMATURE GRAN ABSOLUTE AUTO 0.22 K/mm3 (0.00-0.10); IMMATURE GRAN PERCENT AUTO 3 % (0-1); LYMPHOCYTES ABSOLUTE AUTO 0.81 K/mm3 (0.84-5.20); LYMPHOCYTES PERCENT AUTO 10 % (21-46); MONOCYTES ABSOLUTE AUTO 0.77 K/mm3 (0.16-1.47); MONOCYTES PERCENT AUTO 10 % (4-13); Mean Corpuscular HGB 30.8 pg (26.0-34.0); Mean Corpuscular HGB Conc 32.7 g/dL (31.5-36.5); Mean Corpuscular Volume 94 fL (80-100); Mean Platelet Volume 9.3 fL (9.1-12.4); NEUTROPHILS ABSOLUTE AUTO 5.61 K/mm3 (1.96-9.15); NEUTROPHILS PERCENT AUTO 72 % (41-73); Platelet Count 511 K/mm3 (150-400); RDW Standard Deviation 44.6 fL (35.1-46.3); Red Blood Cell Count 3.51 M/mm3 (3.80-5.20); White Blood Cell Count 7.82 K/mm3 (4.00-11.30)
[2023-04-25 05:28] LABS: Bun/Creatinine Ratio 12.6 (12.0-20.0); C-REACTIVE PROTEIN, EXT RANGE 1.44 mg/dL (0.000-0.300); Calcium, Blood 8.8 mg/dL (8.5-10.1); Creatinine, Blood 0.8 mg/dL (0.40-1.00); Potassium, Blood 4.4 mmol/L (3.5-5.5)
--- NOTE | 2023-04-25 06:29 | NUR ---
NOC SHIFT SUMMARY: CELLULITIES OF RIGHT LOWER LEG. CONTINUES ON IV ANTIBIOTICS. POWERGLIDE IN PLACE TO MARIANA. TYLENOL GIVEN ONCE FOR PAIN. UP WITH SBA AND WALKER TO THE BATHROOM. DISCHARGE HOME WITH HOME HEALTH WHEN MEDICALLY STABLE. A&O X4.
[2023-04-25 07:19] VITALS: BP 141/57
--- NOTE | 2023-04-25 12:00 | NUR ---
LATE ENTRY/1015: R LEG DRESSING CHANGE DONE PER MD ORDER. DR. ANDRE IN THE ROOM WHEN DRESSING CHANGE DONE TO EXAMINE THE WOUNDS. MD STATES THE WOUNDS ARE APPEARING IMPROVED AND HEALING WELL.
[2023-04-25 16:43] VITALS: BP 133/55
--- NOTE | 2023-04-25 18:31 | NUR ---
SHIFT SUMMARY A&O X 4. VSS. IS PLEASANT & COOPERATIVE WITH ALL CARE. PT IS MOTIVATED TO IMPROVE, VOICES STRONG DESIRE TO RETURN HOME. IS PARTICIPATING WITH OT & AMBULATING HALLWAYS WITH FWW WITH HER SISTERS WHEN THEY VISIT. R LEG DRESSING REMAINS C/D/I. IV ANTIBIOTICS CONTINUING PER EMAR. MD PLANS ON CHANGING TO PO ANTIBIOTICS TOMORROW AND THEN WILL ASSESS FOR POSSIBLE DC ON FRIDAY. MEDICATED FOR C/O R LEG PAIN WITH ULTRAM PER EMAR WITH GOOD RELIEF STATED BY PT. PT'S PP ARE PALPABLE AND SURPRISONGLY STRONG.
[2023-04-25 19:30] VITALS: BP 151/65
[2023-04-25 22:21] LABS: Vancomycin, Trough 16.1 ug/mL (5.0-10.0)
[2023-04-26 03:35] VITALS: BP 143/74
--- NOTE | 2023-04-26 06:05 | NUR ---
PATIENT TO START ON PO ANTIBIOTICS TODAY. MD WILL MONITOR CELLULITIS OF RLE AND POSSIBLY SEND PATIENT HOME TOMORROW WITH HOME HEALTH. PATIENT UP WITH SBA WITH WALKER. A&O X4. CALLS APPROPRIATELY.
[2023-04-26 07:20] VITALS: BP 144/73
[2023-04-26 08:37] LABS: BASOPHILS ABSOLUTE AUTO 0.09 K/mm3 (0.00-0.23); BASOPHILS PERCENT AUTO 1 % (0-2); EOSINOPHILS ABSOLUTE AUTO 0.33 K/mm3 (0.00-0.68); EOSINOPHILS PERCENT AUTO 4 % (0-6); Hematocrit 35.5 % (33.0-51.0); Hemoglobin 11.5 g/dL (11.5-16.0); IMMATURE GRAN ABSOLUTE AUTO 0.16 K/mm3 (0.00-0.10); IMMATURE GRAN PERCENT AUTO 2 % (0-1); LYMPHOCYTES ABSOLUTE AUTO 0.75 K/mm3 (0.84-5.20); LYMPHOCYTES PERCENT AUTO 9 % (21-46); MONOCYTES ABSOLUTE AUTO 0.77 K/mm3 (0.16-1.47); MONOCYTES PERCENT AUTO 10 % (4-13); Mean Corpuscular HGB 30.6 pg (26.0-34.0); Mean Corpuscular HGB Conc 32.4 g/dL (31.5-36.5); Mean Corpuscular Volume 94 fL (80-100); Mean Platelet Volume 9.3 fL (9.1-12.4); NEUTROPHILS ABSOLUTE AUTO 5.97 K/mm3 (1.96-9.15); NEUTROPHILS PERCENT AUTO 74 % (41-73); Platelet Count 546 K/mm3 (150-400); RDW Coefficient Variation 13.1 % (11.7-14.2); RDW Standard Deviation 45.3 fL (35.1-46.3); Red Blood Cell Count 3.76 M/mm3 (3.80-5.20); White Blood Cell Count 8.07 K/mm3 (4.00-11.30)
[2023-04-26 08:57] LABS: Bun/Creatinine Ratio 8.6 (12.0-20.0); C-REACTIVE PROTEIN, EXT RANGE 1.12 mg/dL (0.000-0.300); Calcium, Blood 9.2 mg/dL (8.5-10.1); Creatinine, Blood 0.82 mg/dL (0.40-1.00); Potassium, Blood 4.1 mmol/L (3.5-5.5)
[2023-04-26 16:17] VITALS: BP 176/60
--- NOTE | 2023-04-26 18:36 | NUR ---
SHIFT SUMMARY: PT A/O X 4, STANDBY ASSIST WITH WALKER AND GB, PLEASANT AND COOPERATIVE WITH CARE. DRESSING CHANGE COMPLETED TO RLE PER MD ORDERS. SEROUS DRAINAGE MOD AMOUNT CONTINUES. PT CONTINUES TO HAVE PAIN. CONTROLLED TODAY WITH TYLENOL. PT DID DEVELOPE REDNESS TO THIGH THIS EVENING WHICH WAS NOT OBSERVED THIS AM. PT REPORTS ITCHING TO SKIN IN THIS AREA. PT STATES "I THINK IT MIGHT BE A HEAT RASH FROM HAVING THE BLANKETS ON. EXTRA BLANKETS REMOVED AND PT EDUCATED ON WHAT TO REPORT. PT WENT ON WALK TODAY IN HALLWAY AND OBSERVED TO BE AMBULATING STEADY ON FEET. PT IS EATING WELL AND DRINKING FLUIDS WELL.
--- NOTE | 2023-04-26 19:03 | NUR ---
UPDATED PHOTOS TAKEN OF PT WOUNDS. PLACED IN CHART.
[2023-04-27 04:23] VITALS: BP 152/81
--- NOTE | 2023-04-27 05:30 | NUR ---
NOC SHIFT SUMMARY: PO ABX CONTINUED. TYLENOL GIVEN AT BEDTIME. PT. HAD A BM OVERNIGHT. POSSIBLE DISCHARGE TO HOME TODAY WITH HOME HEALTH.
[2023-04-27 08:18] LABS: BASOPHILS PERCENT AUTO 1 % (0-2); EOSINOPHILS ABSOLUTE AUTO 0.23 K/mm3 (0.00-0.68); EOSINOPHILS PERCENT AUTO 2 % (0-6); Hematocrit 37.7 % (33.0-51.0); Hemoglobin 12.4 g/dL (11.5-16.0); IMMATURE GRAN ABSOLUTE AUTO 0.14 K/mm3 (0.00-0.10); IMMATURE GRAN PERCENT AUTO 1 % (0-1); LYMPHOCYTES ABSOLUTE AUTO 1.06 K/mm3 (0.84-5.20); LYMPHOCYTES PERCENT AUTO 10 % (21-46); MONOCYTES ABSOLUTE AUTO 0.79 K/mm3 (0.16-1.47); MONOCYTES PERCENT AUTO 8 % (4-13); Mean Corpuscular HGB 30.8 pg (26.0-34.0); Mean Corpuscular HGB Conc 32.9 g/dL (31.5-36.5); Mean Corpuscular Volume 94 fL (80-100); Mean Platelet Volume 9.2 fL (9.1-12.4); NEUTROPHILS ABSOLUTE AUTO 8.06 K/mm3 (1.96-9.15); NEUTROPHILS PERCENT AUTO 78 % (41-73); Platelet Count 585 K/mm3 (150-400); RDW Coefficient Variation 12.8 % (11.7-14.2); RDW Standard Deviation 44.2 fL (35.1-46.3); Red Blood Cell Count 4.02 M/mm3 (3.80-5.20); White Blood Cell Count 10.38 K/mm3 (4.00-11.30)
[2023-04-27 08:35] LABS: Bun/Creatinine Ratio 11.7 (12.0-20.0); C-REACTIVE PROTEIN, EXT RANGE 1.26 mg/dL (0.000-0.300); Calcium, Blood 9.4 mg/dL (8.5-10.1); Creatinine, Blood 0.77 mg/dL (0.40-1.00); Potassium, Blood 4.2 mmol/L (3.5-5.5)
[2023-04-27] MEDS ORDERED: AMOCLA875 PO (14:35)
[2023-04-27] MEDS ORDERED: LINE600 PO (14:35)
[2023-04-27] MEDS ORDERED: LACT PO (14:36)
--- NOTE | 2023-04-27 16:05 | NUR ---
DISCHARGE SUMMARY: PT AND FAMILY EDUCATED ON DISCHARGE PLAN AND MEDICATIONS. WOUND CARE COMPLETED PRIOR TO DISCHARGE AND CLEAN DRESSING APPLIED. UPDATED PHOTOS TAKEN AND ON CHART. PT GIVEN TYLENOL REQUESTED PRIOR TO DC. PT ASSISTED WITH PACKING UP HER BELONGINGS AND SENT WITH FAMILY. PT ESCORTED TO POV VIA WC BY [facility].
== END 2023-04-27 15:11 | disposition home health service (06) | DRG 871 ==
LOC: ER 14:47 → PCU 21:02 → MEDS 21:02 → PCU 23:54 → MEDS 04-15 22:09
PROVIDERS: Family Medicine; Internal Medicine; Nurse Practitioner Acute Care; Physician Assistant; ADMIT Internal Medicine
DX: A41.9 Sepsis, unspecified organism (principal); G92.8 Other toxic encephalopathy; N17.9 Acute kidney failure, unspecified; M62.82 Rhabdomyolysis; E87.1 Hypo-osmolality and hyponatremia; L03.115 Cellulitis of right lower limb; N39.0 Urinary tract infection, site not specified; I10 Essential (primary) hypertension; E78.5 Hyperlipidemia, unspecified; F17.210 Nicotine dependence, cigarettes, uncomplicated; K58.9 Irritable bowel syndrome, unspecified; R65.20 Severe sepsis without septic shock; Z20.822 Contact with and (suspected) exposure to COVID-19; B96.20 Unspecified Escherichia coli [E. coli] as the cause of diseases classified elsewhere; E66.01 Morbid (severe) obesity due to excess calories; L89.899 Pressure ulcer of other site, unspecified stage; W18.30XA Fall on same level, unspecified, initial encounter; E86.1 Hypovolemia; E86.0 Dehydration; Z79.899 Other long term (current) drug therapy; Z68.33 Body mass index [BMI] 33.0-33.9, adult; Z60.2 Problems related to living alone
CPT/HCPCS: 36415; 70450; 73701; 80048; 80053; 80069; 80202; 81001; 82550; 82565; 83605; 83735; 84100; 85025; 85651; 86140; 87040; 87070; 87077; 87086; 87186; 87205; 87507; 96361; 96365; 96366; 96367; 97110; 97116; 97162; 97166; 97530; 97535; 99285-25; A9270; C1751; J0360; J0690; J1644; J2543; J3370; J7030; J7050; J7060; Q9967; U0002

== ENCOUNTER → 2023-04-29 | Outpatient (CLI) | payer OTHER ==
[~2023-04-29] MED LIST: AMOCLA875 PO; LACT PO; LINE600 PO; LISI20 PO; MAGNESIUM CITRATE; ROSUVASTATIN CAL5 MG PO
[2023-04-29 11:48] LABS: BASOPHILS PERCENT AUTO 1 % (0-2); EOSINOPHILS ABSOLUTE AUTO 0.29 K/mm3 (0.00-0.68); EOSINOPHILS PERCENT AUTO 3 % (0-6); Hematocrit 36.2 % (33.0-51.0); Hemoglobin 11.8 g/dL (11.5-16.0); IMMATURE GRAN PERCENT AUTO 1 % (0-1); LYMPHOCYTES ABSOLUTE AUTO 0.79 K/mm3 (0.84-5.20); LYMPHOCYTES PERCENT AUTO 8 % (21-46); MONOCYTES ABSOLUTE AUTO 0.92 K/mm3 (0.16-1.47); MONOCYTES PERCENT AUTO 10 % (4-13); Mean Corpuscular HGB 30.7 pg (26.0-34.0); Mean Corpuscular HGB Conc 32.6 g/dL (31.5-36.5); Mean Corpuscular Volume 94 fL (80-100); Mean Platelet Volume 9.4 fL (9.1-12.4); NEUTROPHILS ABSOLUTE AUTO 7.25 K/mm3 (1.96-9.15); NEUTROPHILS PERCENT AUTO 77 % (41-73); Platelet Count 593 K/mm3 (150-400); RDW Coefficient Variation 12.7 % (11.7-14.2); RDW Standard Deviation 44.2 fL (35.1-46.3); Red Blood Cell Count 3.84 M/mm3 (3.80-5.20); White Blood Cell Count 9.45 K/mm3 (4.00-11.30)
[2023-04-29 12:38] LABS: Albumin, Blood 2.9 g/dL (3.4-5.0); Anion Gap 7 mmol/L (6-16); Blood Urea Nitrogen 10 mg/dL (8-24); Bun/Creatinine Ratio 11.6 (12.0-20.0); CO2, Blood 26 mmol/L (21-32); Calcium, Blood 9.6 mg/dL (8.5-10.1); Chloride, Blood 97 mmol/L (98-108); Creatinine, Blood 0.86 mg/dL (0.40-1.00); Glomerular Filtration Rate 74 (60-); Glucose, Blood 149 mg/dL (70-99); Phosphorus, Blood 3.7 mg/dL (2.5-4.9); Potassium, Blood 4.4 mmol/L (3.5-5.5); Sodium, Blood 130 mmol/L (136-145)
== END | disposition home or self-care (01) ==
LOC: LAB SHORT 09:45 → LAB 09:45
PROVIDERS: Family Medicine
DX: L03.115 Cellulitis of right lower limb (principal)
CPT/HCPCS: 80069; 85025; 85651

== ENCOUNTER → 2023-05-16 | Outpatient (CLI) | payer OTHER ==
[2023-05-16 16:05] LABS: BASOPHILS ABSOLUTE AUTO 0.06 K/mm3 (0.00-0.23); BASOPHILS PERCENT AUTO 1 % (0-2); EOSINOPHILS ABSOLUTE AUTO 0.22 K/mm3 (0.00-0.68); EOSINOPHILS PERCENT AUTO 3 % (0-6); Hematocrit 33.6 % (33.0-51.0); Hemoglobin 10.9 g/dL (11.5-16.0); IMMATURE GRAN ABSOLUTE AUTO 0.06 K/mm3 (0.00-0.10); IMMATURE GRAN PERCENT AUTO 1 % (0-1); LYMPHOCYTES ABSOLUTE AUTO 0.68 K/mm3 (0.84-5.20); LYMPHOCYTES PERCENT AUTO 9 % (21-46); MONOCYTES ABSOLUTE AUTO 0.47 K/mm3 (0.16-1.47); MONOCYTES PERCENT AUTO 6 % (4-13); Mean Corpuscular HGB 31.2 pg (26.0-34.0); Mean Corpuscular HGB Conc 32.4 g/dL (31.5-36.5); Mean Corpuscular Volume 96 fL (80-100); NEUTROPHILS ABSOLUTE AUTO 6.18 K/mm3 (1.96-9.15); NEUTROPHILS PERCENT AUTO 81 % (41-73); Platelet Count 484 K/mm3 (150-400); RDW Coefficient Variation 13.9 % (11.7-14.2); RDW Standard Deviation 48.5 fL (35.1-46.3); Red Blood Cell Count 3.49 M/mm3 (3.80-5.20); White Blood Cell Count 7.67 K/mm3 (4.00-11.30)
[2023-05-16 17:40] LABS: Albumin, Blood 3.6 g/dL (3.4-5.0); Albumin/Globulin Ratio 0.8 (0.8-1.8); Bilirubin, Total 0.2 mg/dL (0.1-1.0); Bun/Creatinine Ratio 18.8 (12.0-20.0); Calcium, Blood 9.6 mg/dL (8.5-10.1); Creatinine, Blood 0.64 mg/dL (0.40-1.00); Globulin, Blood 4.7 g/dL (2.2-4.0); Potassium, Blood 4.1 mmol/L (3.5-5.5); Total Protein, Blood 8.3 g/dL (6.4-8.2)
== END ==
LOC: LAB SHORT 15:12 → LAB 15:12
PROVIDERS: Family Medicine
DX: I10 Essential (primary) hypertension (principal); E66.01 Morbid (severe) obesity due to excess calories; L03.115 Cellulitis of right lower limb
CPT/HCPCS: 80053; 85025; 85651; 86140

== ENCOUNTER → 2023-05-28 | Outpatient (CLI) | payer OTHER | END | disposition home or self-care (01) | LOC: LAB SHORT 14:11 → LAB 14:11 | DX: L03.115 Cellulitis of right lower limb (principal); I10 Essential (primary) hypertension; E78.5 Hyperlipidemia, unspecified; R60.0 Localized edema | CPT/HCPCS: 83880; 85651 ==

== ENCOUNTER 2023-07-04 13:00 | Emergency (ER) | payer OTHER ==
[~2023-07-04] VITALS: Ht 165.1 cm; Wt 95.2 kg
[2023-07-04 13:56] LABS: BASOPHILS ABSOLUTE AUTO 0.09 K/mm3 (0.00-0.23); BASOPHILS PERCENT AUTO 1 % (0-2); EOSINOPHILS ABSOLUTE AUTO 0.79 K/mm3 (0.00-0.68); EOSINOPHILS PERCENT AUTO 10 % (0-6); Hematocrit 40.4 % (33.0-51.0); Hemoglobin 13.6 g/dL (11.5-16.0); IMMATURE GRAN ABSOLUTE AUTO 0.04 K/mm3 (0.00-0.10); IMMATURE GRAN PERCENT AUTO 1 % (0-1); LYMPHOCYTES ABSOLUTE AUTO 0.97 K/mm3 (0.84-5.20); LYMPHOCYTES PERCENT AUTO 12 % (21-46); MONOCYTES ABSOLUTE AUTO 0.65 K/mm3 (0.16-1.47); MONOCYTES PERCENT AUTO 8 % (4-13); Mean Corpuscular HGB 30.5 pg (26.0-34.0); Mean Corpuscular HGB Conc 33.7 g/dL (31.5-36.5); Mean Corpuscular Volume 91 fL (80-100); Mean Platelet Volume 9.6 fL (9.1-12.4); NEUTROPHILS ABSOLUTE AUTO 5.47 K/mm3 (1.96-9.15); NEUTROPHILS PERCENT AUTO 68 % (41-73); Platelet Count 457 K/mm3 (150-400); RDW Coefficient Variation 12.4 % (11.7-14.2); RDW Standard Deviation 41.1 fL (35.1-46.3); Red Blood Cell Count 4.46 M/mm3 (3.80-5.20); White Blood Cell Count 8.01 K/mm3 (4.00-11.30)
[2023-07-04 14:04] LABS: Albumin, Blood 3.7 g/dL (3.4-5.0); Albumin/Globulin Ratio 0.9 (0.8-1.8); Bilirubin, Total 0.3 mg/dL (0.1-1.0); Bun/Creatinine Ratio 17.8 (12.0-20.0); Calcium, Blood 9.5 mg/dL (8.5-10.1); Creatinine, Blood 0.85 mg/dL (0.40-1.00); Globulin, Blood 4.2 g/dL (2.2-4.0); Potassium, Blood 4.5 mmol/L (3.5-5.5); Total Protein, Blood 7.9 g/dL (6.4-8.2)
[2023-07-04] MEDS ORDERED: LISI20 PO (15:36)
[2023-07-04] MEDS ORDERED: TRAM50 PO (15:37)
[2023-07-04] MEDS ORDERED: FUROSEMIDE20 MG PO (15:37)
[2023-07-04] MEDS ORDERED: SULFAMETHOXAZO1 EAC1 PO (15:38)
[2023-07-04 15:44] VITALS: BP 146/61
[2023-07-04] MEDS ORDERED: CEPH500 PO (18:37)
== END 2023-07-04 18:53 | disposition home or self-care (01) ==
LOC: ER 13:00
PROVIDERS: Emergency Medicine
DX: L03.115 Cellulitis of right lower limb (principal); I73.9 Peripheral vascular disease, unspecified; I10 Essential (primary) hypertension; E78.5 Hyperlipidemia, unspecified; Z87.891 Personal history of nicotine dependence; Z79.899 Other long term (current) drug therapy; Z91.011 Allergy to milk products; Z91.012 Allergy to eggs; Z91.018 Allergy to other foods
CPT/HCPCS: 80053; 85025; 93925; 96374; 96375; 99284-25; A9270; J1885; J2405

== ENCOUNTER → 2024-10-05 | Outpatient (CLI) | payer OTHER ==
[~2024-10-05] MED LIST changes: +CEPH500 PO; +FUROSEMIDE20 MG PO; +SULFAMETHOXAZO1 EAC1 PO; +TRAM50 PO
[2024-10-05 19:39] LABS: Albumin, Blood 3.8 g/dL (3.4-5.0); Albumin/Globulin Ratio 1.1 (0.8-1.8); Bilirubin, Total 0.4 mg/dL (0.1-1.0); Bun/Creatinine Ratio 21.7 (12.0-20.0); Calcium, Blood 9.4 mg/dL (8.5-10.1); Creatinine, Blood 0.78 mg/dL (0.40-1.00); Globulin, Blood 3.5 g/dL (2.2-4.0); Potassium, Blood 4.3 mmol/L (3.5-5.5); Total Protein, Blood 7.3 g/dL (6.4-8.2)
== END ==
LOC: LAB SHORT 14:13 → LAB 14:13
PROVIDERS: Internal Medicine
DX: E22.2 Syndrome of inappropriate secretion of antidiuretic hormone (principal)
CPT/HCPCS: 36415; 80053

== ENCOUNTER 2024-10-26 14:24 | Emergency (ER) | payer OTHER ==
[~2024-10-26] VITALS: Ht 167.6 cm; Wt 113.4 kg
[2024-10-26 14:28] VITALS: BP 169/62
== END 2024-10-26 15:25 | disposition home or self-care (01) ==
LOC: ER 14:24
DX: S91.301A Unspecified open wound, right foot, initial encounter (principal); I10 Essential (primary) hypertension; E78.5 Hyperlipidemia, unspecified; Z91.012 Allergy to eggs; Z91.011 Allergy to milk products; Z79.899 Other long term (current) drug therapy; Z79.2 Long term (current) use of antibiotics; Z87.891 Personal history of nicotine dependence; X58.XXXA Exposure to other specified factors, initial encounter
CPT/HCPCS: 99283